=== PATIENT | male | born 1990 | race Caucasian/White ===

== ENCOUNTER 2016-11-16 20:10 | Inpatient (IN) | payer OTHER ==
[~2016-11-16] VITALS: Ht 175.3 cm; Wt 87.0 kg
[~2016-11-16 20:10] MED LIST: CARI350T29 PO
[2016-11-17] VITALS (13 sets, daily range): BP systolic 135–147; BP diastolic 80–93; PULSE 41–89; RESP 18–20; Ht 175.3 cm; Wt 87.0 kg
--- NOTE | 2016-11-17 02:14 | HP ---
Date/Time of Note Date/Time of Note DATE: 11/17/16 TIME: 02:14 Assessment/Plan VTE Prophylaxis VTE Prophylaxis Intervention: ambulation Lines/Catheters IV Catheter Type (from Nrsg): Saline Lock Urinary Cath still in place: No Assessment/Plan Assessment/Plan 1) Acute Kidney Injury - CBC, CMP, UA - CRP, ASO Titer, RITCHIE, Ionized Calcium - Renal Diet - Nephro Consult pending Lab Results HPI/ROS Admit Date/Time Admit Date/Time Nov 16, 2016 at 23:34 Hx of Present Illness This is a 26 year old male, Direct Admit from [facility], who presented to the ER there on 11/16/16, when he was sent there from clinic for a CT, with intermittent, epigastric pain over the previous 6 days. At that time, the pain was cramping, with no aggravating or alleviating factors. He has no history of similar pain, but he does have chronic low back pain and history of lumbar surgery. He thought that he may have hurt himself by lifting up his toddler. Up until several months ago, he used marijuana regularly. He rarely takes ASA or Ibuprofen. He denies street drugs or over-the- counter supplements. His work-up, including a RUQ ultrasound was unremarkable, except that his Creatinine was 3.1. Per ER physician, Dr. Ng, at [facility], his previous Creatinines were always 1 or lower. He has had no fever or chills. Nausea or vomiting. Dysuria, urgency or frequency, and he admits to urinating normally. Last BM was on 11/15. He denies any recent illness, but says he has a mild, occasional, dry cough, "just like everyone else". ROS Constitutional: No chills, No fatigue Eyes: No discharge, No visual change ENT: No congestion, No discharge, No sore throat Respiratory: cough (minimal as per HPI), No shortness of breath, No wheezing Cardiovascular: No chest pain, No palpitations Gastrointestinal: No constipation, No decreased appetite, No diarrhea, No nausea, No vomiting Musculoskeletal: other (LBB, chronic, not too bad, but takes regular narcotics for the pain.), No neck pain Skin: No bruising, No pruritis, No rash Neurologic: No confusion, No dizziness Endocrine: No polydypsia, No polyuria, No weight change Lymphatic: No adenopathy Psychological: anxiety (Patient admits he is anxious. Worried that he will need surgery, and he does not want to stay in the hospital.) Immunologic: No pruritis, No rhinitis PMH/Family/Social Past Medical History Medical History: other (Low Back Pain, Headaches, Seizures, ANxiety, Depression ) Past Surgical History Past Surgical Hx: other (Lumbar Spine Surgery) Family History Significant Family History: no pertinent family hx Social History Drug Use: marijuana (Previous chronic, daily use, but not for "several months") Exam/Review of Systems Vital Signs Vitals Vital Signs Date Time Temp Pulse Resp B/P Pulse Ox O2 Delivery O2 Flow Rate FiO2 11/17/16 00:14 99.0 74 20 147/91 97 Room Air Exam Constitutional: alert, oriented, well developed Psych: anxiety, nl mood/affect Head: atraumatic, normocephalic Eyes: EOMI, nl conjunctiva, nl sclera ENMT: mucosa pink and moist, nl external ears & nose, nl lips & teeth Neck: other (No lymphadenopathy), supple Respiratory: clear to auscultation, normal air movement Cardiovascular: nl pulses, regular rate and rhythm Gastrointestinal: nl liver, spleen, non-tender, other (No CVA Tenderness), soft Musculoskeletal: muscle tone, nl extremities to inspection Extremities: normal pulses, No cyanosis, No edema Neurological: [employer] II-XII intact (Grossly), nl mental status, nl speech, nl strength Skin: nl turgor, No rash or lesions Medications Medications Cyclobenzaprine 10 mg 1, Q 8 hrs prn Hydrocodone APAP 5/325, 1 BID prn Ondansetron 8 mg ODT, 1 Q 8 hours prn JER SAPP MD Nov 17, 2016 02:14
[2016-11-17] MEDS ORDERED: HYDROCODONE/APAP (5/325) TAB PO PRN (02:30)
[2016-11-17] MEDS ORDERED: NACL 0.9% 3 ML SYG IV SCH (02:30)
[2016-11-17] MEDS ORDERED: ACETAMINOPHEN 325 MG TAB PO PRN (02:30)
[2016-11-17 07:09] LABS: ADD SCAN DIFF NO
[2016-11-17 07:14] LABS: BASOPHILS % 0.4 % (0.0-2.0); EOSINOPHILS # 0.2 10^3/ul (0.0-0.5); EOSINOPHILS % 2.3 % (0.0-7.0); HEMATOCRIT 43.7 % (42.0-52.0); HEMOGLOBIN 14.5 g/dl (14.0-18.0); LYMPHOCYTES # 2.2 10^3/ul (0.8-2.9); LYMPHOCYTES % 27.9 % (15.0-51.0); MEAN CORPUSCULAR HEMOGLOBIN 28.4 pg (29.0-33.0); MEAN CORPUSCULAR HGB CONC 33.2 g/dl (32.0-37.0); MEAN CORPUSCULAR VOLUME 85.7 fl (82.0-101.0); MEAN PLATELET VOLUME 11.2 fl (7.4-10.4); MONOCYTE # 0.7 10^3/ul (0.3-0.9); MONOCYTES % 9.4 % (0.0-11.0); NEUTROPHIL # 4.7 10^3/ul (1.6-7.5); NEUTROPHILS % 59.7 % (39.0-77.0); PLATELET COUNT 225 10^3/UL (140-415); RED CELL DISTRIBUTION WIDTH 12.1 % (11.5-14.5); WHITE BLOOD COUNT 7.8 10^3/ul (4.8-10.8)
[2016-11-17 07:28] LABS: INR 1.08; PT RATIO 1.1
[2016-11-17 07:29] LABS: PARTIAL THROMBOPLASTIN TIME 33.1 Sec (25.0-35.0)
[2016-11-17 07:30] LABS: POTASSIUM 4.9 mmol/L (3.5-5.1)
[2016-11-17 07:33] LABS: CREATININE 3.04 mg/dl (0.61-1.24)
[2016-11-17 07:34] LABS: CALCIUM 9.6 mg/dl (8.4-10.2); MAGNESIUM 2.4 mg/dl (1.7-2.5); PHOSPHORUS 5.4 mg/dl (2.5-4.9)
[2016-11-17 07:37] LABS: C-REACTIVE PROTEIN 2.8 mg/dl (0.0-0.9)
[2016-11-17] MEDS: FAMOTIDINE 20 MG TAB PO SCH ×2 (08:09→20:58)
[2016-11-17 13:24] LABS: ADD UMIC YES; URINE BILIRUBIN (Dip) NEGATIVE (NEGATIVE); URINE BLOOD (Dip) TRACE (NEGATIVE); URINE COLOR LT. YELLOW (YELLOW); URINE GLUCOSE (Dip) NEGATIVE (NEGATIVE); URINE KETONES (Dip) NEGATIVE (NEGATIVE); URINE LEUKOCYTE ESTERASE (Dip) NEGATIVE (NEGATIVE); URINE NITRITE (Dip) NEGATIVE (NEGATIVE); URINE TOTAL PROTEIN (Dip) NEGATIVE (NEGATIVE); URINE UROBILINOGEN (Dip) 0.2 E.U./dL (0.1-1.0)
[2016-11-17 13:36] LABS: URINE RBCS 0-2 /HPF (0)
--- NOTE | 2016-11-17 16:17 | PN ---
Date/Time of Note Date/Time of Note DATE: 11/17/16 TIME: 16:13 Assessment/Plan VTE Prophylaxis VTE Prophylaxis Intervention: SCD's Lines/Catheters [facility] (from [facility] Saline Lock Urinary Cath still in place: No Assessment/Plan Chief Complaint/Hosp Course Assessment and plan 1. Acute renal insufficiency, likely secondary to intractable diarrhea Continue aggressive IV fluid, nephrology has been consulted, Follow-up renal panel, renal ultrasound normal Continue monitor patient closely for recommendation management treatment as per clinical course Problems: Subjective 24 Hr Interval Summary Free Text/Dictation Patient denies of any chest pain or shortness of breath Tolerating oral intake Exam/Review of Systems Vital Signs Vitals Vital Signs Date Time Temp Pulse Resp B/P Pulse Ox O2 Delivery O2 Flow Rate FiO2 11/17/16 16:05 54 11/17/16 11:41 98.1 18 136/84 97 11/17/16 04:00 Room Air Intake and Output 11/16/16 11/16/16 11/17/16 15:00 23:00 07:00 Intake Total 1100 ml Output Total 950 ml Balance 150 ml Exam General: The patient is well-developed, Not in acute distress. HEENT: Atraumatic, normocephalic. The pupils are equal and round . Neck: Supple with full range of motion. Chest: Normal expansion of the thorax during inspiration Lungs: Clear to auscultation bilaterally Heart: Normal S1-S2, Regular rhythm and rate. Abdomen: Soft , nontender, nondistended , bowel sounds are present. Extremities: Normal to inspection, no edema no cyanosis Neurologic: Normal mental status,The patient is awake, alert and oriented . Results Result Diagram: 11/17/16 0632 11/17/16 0632 Results 24 hrs Laboratory Tests Test 11/17/16 06:32 11/17/16 11:54 Activated Partial Thromboplast Time 33.1 Albumin 4.0 Anion Gap 19 H Basophils # 0.0 Basophils % 0.4 Blood Urea Nitrogen 19 C-Reactive Protein 2.8 H Calcium Level 9.6 Carbon Dioxide Level 27 Chloride Level 104 Creatinine 3.04 H Eosinophils # 0.2 Eosinophils % 2.3 Erythrocyte Sedimentation Rate 12 Glucose Level 89 Hematocrit 43.7 Hemoglobin 14.5 INR International Normalized Ratio 1.08 Ionized Calcium (Measured) 1.2 Lymphocytes # 2.2 Lymphocytes % 27.9 Magnesium Level 2.4 Mean Corpuscular Hemoglobin 28.4 L Mean Corpuscular Hemoglobin Concent 33.2 Mean Corpuscular Volume 85.7 Mean Platelet Volume 11.2 H Monocytes # 0.7 Monocytes % 9.4 Neutrophils # 4.7 Neutrophils % 59.7 Nucleated Red Blood Cells # 0.0 Nucleated Red Blood Cells % 0.0 Phosphorus Level 5.4 H Platelet Count 225 Potassium Level 4.9 Prothrombin Time 14.0 Prothrombin Time Ratio 1.1 Red Blood Count 5.10 Red Cell Distribution Width 12.1 Sodium Level 145 H White Blood Count 7.8 Urine Bilirubin NEGATIVE Urine Clarity CLEAR Urine Color LT. YELLOW Urine Glucose NEGATIVE Urine Hemoglobin TRACE Urine Ketones NEGATIVE Urine Leukocyte Esterase NEGATIVE Urine Microscopic RBC 0-2 Urine Microscopic WBC NONE SEEN Urine Nitrite NEGATIVE Urine Random Creatinine 21.59 Urine Random Sodium 45 Urine Specific [place] <=1.005 L Urine Total Protein NEGATIVE Urine Urobilinogen 0.2 E.U./dL Urine pH 5.5 Medications Medications Current Medications Acetaminophen (Tylenol Tab) 650 mg Q6H PRN PO PAIN LEVEL 1-3 OR FEVER; Start at 02:30 Acetaminophen/ Hydrocodone Bitart ([place] (5/325)) 2 tab Q6H PRN PO SEVERE PAIN LEVEL 7-10; Start 11/17/16 at 02:30 Famotidine (Pepcid) 20 mg Q12 PO Last administered on 11/17/16t 08:09; Admin Dose 20 MG; Start 11/17/16 at 09:00 Influenza Virus Vaccine (Fluzone) 0.5 ml ONCE ONCE IM* ; Start 11/18/16 at 09:00 ; Stop 11/18/16 at 09:01 GURDEEP FERNANDEZ MD Nov 17, 2016 16:17
[2016-11-17] MEDS: CALCIUM CARBONATE 500 MG CHEW TAB PO SCH ×2 (17:58→18:00)
[2016-11-17] MEDS: SOD CHLORIDE 0.45% 1,000 ML IV SCH (17:59)
--- NOTE | 2016-11-17 18:38 | CONS ---
DATE OF ADMISSION: 11/16/2016 DATE OF CONSULTATION: Dear Dr. Erin Hood and Dr. Daley: Thank you for asking me to participate in the care of Mr. Em. HISTORY OF PRESENT ILLNESS: This is a 26-year-old male who has been admitted to the hospital as a transfer from [facility]. The patient had been complaining of abdominal pain and apparently visited the urgent care where his creatinine was elevated at 3.1. He was referred to the emergency room where additional workup inclu ded a CT scan and a repeat creatinine was 3.1. He has been since transferred here for continued car e. The patient admits to having had a recent upper respiratory tract infection. A urinalysis does show 2 to 5 RBCs. Urine bacteria moderate, and small blood is present. The patient has had normal rest of the chemistry and enzymes are normal. PAST MEDICAL HISTORY: The patient denies being exposed to any nephrotoxic agents. He has not had a ny episode of urinary retention, fatou hematuria, facial swelling. MEDICATIONS: He has been takin. Vicodin. 2. Reglan. 3. Flexeril 4. Ibuprofen. 5. Prevacid. 6. Deltasone. REVIEW OF SYSTEMS: Rest of the system review is negative for any head, ears, nose, throat problems. The patient has not had any joint pain, skin rash, hearing loss, although as mentioned earlier, he has been having symptoms of upper respiratory tract infection. The patient has already had a CT scan, as mentioned is negative. He has also had a lumbar spine x-r ay which is negative. LABORATORY DATA: Presently, white count is 7.8, hematocrit is 44 and phosphorus is 5.4. CRP is 2.8 , sodium is somewhat high at 145, BUN is 19, creatinine 3.04. A repeat urinalysis has specific grav ity 1.005, and urine sodium was 45. INR is normal. Patient has already been placed on Pepcid, calc ium, Tums and IV fluids at 80 mL per hour. He has received influenza ____ and hydrocodone. The rest of the system review is negative for any head, ear, nose, throat problem. The patient ruchi es any acute gout, joint pain, any skin rash, seizures, syncope, or other metabolic problem. FAMILY HISTORY: Not obtainable. He is adopted. PERSONAL HISTORY: He stated he is and he has 2 children. PHYSICAL EXAMINATION: GENERAL: The patient to be pleasant male who appears to be in no acute distress. VITAL SIGNS: His blood pressure is 140/90, heart rate is low at 54, has been as low as 41 and prese ntly at 54, temperature 97.5, respiration is 20. HEAD, EAR, NOSE AND THROAT: Unremarkable. EYES: Pale conjunctivae. Sclerae are anicteric. NOSE: Normal mucosa. He has a pierced right nostril. THROAT: Tongue is pale. No pharyngeal congestion. NECK: Supple. No JVD, lymph or thyroid present. CHEST: Symmetrical. LUNGS: Clear. HEART: Regular rhythm, S1 unremarkable. ABDOMEN: Flat, soft, no masses. GENITALIA: Not examined. EXTREMITIES: No cyanosis, clubbing, edema. SKIN: Unremarkable. IMPRESSION: Acute kidney injury, history of ? etiology. See discussion below. This patient has been in good health at least until recently when he was found to have elevated crea tinine. There is minimal microscopic hematuria which may or may not be of any significance. The possible consideration may well be a glomerular disease such as acute post streptococcal glomeru lonephritis, especially in the light of his recent upper respiratory tract infection. I would obtai n an ASO titer to corroborate that. I would continue vigorous hydration in hope that we can improve the renal function and I will hope that the renal function will turn around. I will continue to fo llow the patient's clinical course closely along with you. Allow me to thank you once again. Dictated By: JEANCARLOS HUGGINS/RICK Conf#: [id number] DID#: [id number]
[2016-11-17 20:18] LABS: CREATINE KINASE 46 IU/L (23-200)
[2016-11-17 20:30] LABS: CK-MB < 0.22 ng/ml (0.0-2.4)
[2016-11-17 20:36] LABS: TROPONIN-I < 0.012 ng/ml (0.00-0.12)
[2016-11-18] VITALS (9 sets, daily range): BP systolic 124–170; BP diastolic 68–94; PULSE 40–74; RESP 18
[2016-11-18] MEDS: SOD CHLORIDE 0.45% 1,000 ML IV SCH ×4 (00:25→13:09)
[2016-11-18 05:58] LABS: ADD SCAN DIFF NO
[2016-11-18 06:06] LABS: BASOPHILS % 0.5 % (0.0-2.0); EOSINOPHILS # 0.3 10^3/ul (0.0-0.5); EOSINOPHILS % 3.2 % (0.0-7.0); HEMATOCRIT 41.7 % (42.0-52.0); LYMPHOCYTES % 25.1 % (15.0-51.0); MEAN CORPUSCULAR HEMOGLOBIN 28.9 pg (29.0-33.0); MEAN CORPUSCULAR HGB CONC 33.6 g/dl (32.0-37.0); MEAN PLATELET VOLUME 10.9 fl (7.4-10.4); MONOCYTE # 0.7 10^3/ul (0.3-0.9); MONOCYTES % 9.3 % (0.0-11.0); NEUTROPHIL # 4.8 10^3/ul (1.6-7.5); NEUTROPHILS % 61.6 % (39.0-77.0); PLATELET COUNT 201 10^3/UL (140-415); RED BLOOD COUNT 4.85 10^6/ul (4.70-6.10); RED CELL DISTRIBUTION WIDTH 12.3 % (11.5-14.5); WHITE BLOOD COUNT 7.8 10^3/ul (4.8-10.8)
[2016-11-18 06:36] LABS: ALBUMIN 3.9 g/dl (3.3-4.9)
[2016-11-18 06:37] LABS: POTASSIUM 4.4 mmol/L (3.5-5.1)
[2016-11-18 06:39] LABS: ALBUMIN/GLOBULIN RATIO 1.39; BILIRUBIN,INDIRECT 0.2 mg/dl (0-1.1); BILIRUBIN,TOTAL 0.2 mg/dl (0.2-1.3); CREATININE 2.75 mg/dl (0.61-1.24); TOTAL PROTEIN 6.7 g/dl (6.1-8.1)
[2016-11-18 06:40] LABS: CALCIUM 9.4 mg/dl (8.4-10.2)
[2016-11-18] MEDS: FAMOTIDINE 20 MG TAB PO SCH ×2 (08:36→20:27)
[2016-11-18] MEDS: CALCIUM CARBONATE 500 MG CHEW TAB PO SCH ×3 (08:37→18:49)
[2016-11-18] MEDS ORDERED: INFLUENZA VIRUS VACCINE 0.5 ML (DISPENSING) IM* ONE (09:00)
--- NOTE | 2016-11-18 13:09 | PN ---
Date/Time of Note Date/Time of Note DATE: 11/18/16 TIME: 13:05 Assessment/Plan VTE Prophylaxis VTE Prophylaxis Intervention: SCD's Lines/Catheters IV Catheter Type (from [facility]): Saline Lock Urinary Cath still in place: No Assessment/Plan Chief Complaint/Hosp Course Assessment and plan 1. Acute renal insufficiency, likely secondary to intractable diarrhea versus streptococcal glomerulonephritis, follow up ASO Continue aggressive IV fluid, nephrology has been consulted, Follow-up renal panel, renal ultrasound normal Nephrology has been consulted, renal panel moderately improving status post IV fluid Continue monitor patient closely for recommendation management treatment as per clinical course Problems: Subjective 24 Hr Interval Summary Free Text/Dictation Patient denies any chest pain or shortness of breath No evidence of dysuria or hematuria No complaint of having abdominal pain no CVA tenderness Exam/Review of Systems Vital Signs Vitals Vital Signs Date Time Temp Pulse Resp B/P Pulse Ox O2 Delivery O2 Flow Rate FiO2 11/18/16 11:21 97.9 51 17 131/77 97 11/18/16 04:00 Room Air Intake and Output 11/17/16 11/17/16 11/18/16 14:59 22:59 06:59 Intake Total 3110 ml 750 ml 2500 ml Output Total 1725 ml 200 ml 4050 ml Balance 1385 ml 550 ml -1550 ml Exam General: The patient is well-developed, Not in acute distress. HEENT: Atraumatic, normocephalic. The pupils are equal and round . Neck: Supple with full range of motion. Chest: Normal expansion of the thorax during inspiration Lungs: Clear to auscultation bilaterally Heart: Normal S1-S2, Regular rhythm and rate. Abdomen: Soft , nontender, nondistended , bowel sounds are present. Extremities: Normal to inspection, no edema no cyanosis Neurologic: Normal mental status,The patient is awake, alert and oriented . Results Result Diagram: 11/18/16 0535 11/18/16 0535 Results 24 hrs Laboratory Tests Test 11/17/16 19:43 11/18/16 05:35 Creatine Kinase 46 Creatine Kinase Index 0.5 Creatinine Kinase MB (Mass) < 0.22 Troponin I < 0.012 Alanine Aminotransferase (ALT/SGPT) 27 Albumin 3.9 Albumin/Globulin Ratio 1.39 Alkaline Phosphatase 64 Anion Gap 17 H Aspartate Amino Transf (AST/SGOT) 17 Basophils # 0.0 Basophils % 0.5 Blood Urea Nitrogen 19 Calcium Level 9.4 Carbon Dioxide Level 28 Chloride Level 104 Creatinine 2.75 H Direct Bilirubin 0.00 Eosinophils # 0.3 Eosinophils % 3.2 Globulin 2.80 Glucose Level 100 Hematocrit 41.7 L Hemoglobin 14.0 Indirect Bilirubin 0.2 Lymphocytes # 2.0 Lymphocytes % 25.1 Magnesium Level 2.1 Mean Corpuscular Hemoglobin 28.9 L Mean Corpuscular Hemoglobin Concent 33.6 Mean Corpuscular Volume 86.0 Mean Platelet Volume 10.9 H Monocytes # 0.7 Monocytes % 9.3 Neutrophils # 4.8 Neutrophils % 61.6 Nucleated Red Blood Cells # 0.0 Nucleated Red Blood Cells % 0.0 Platelet Count 201 Potassium Level 4.4 Red Blood Count 4.85 Red Cell Distribution Width 12.3 Sodium Level 145 H Total Bilirubin 0.2 Total Protein 6.7 White Blood Count 7.8 Medications Medications Current Medications Acetaminophen (Tylenol Tab) 650 mg Q6H PRN PO PAIN LEVEL 1-3 OR FEVER; Start at 02:30 Acetaminophen/ Hydrocodone Bitart ([place] (5/325)) 2 tab Q6H PRN PO SEVERE PAIN LEVEL 7-10 Last administered on 11/18/16 08:37; Admin Dose 2 TAB; Start 11/17/16 at 02:30 Famotidine 20 mg 20 mg Q12 PO Last administered on 11/18/16 08:36; Admin Dose 20 MG; Start 11/17/16 at 09:00 Sodium Chloride (1/2 NS) 1,000 ml @ 120 mls/hr Q8H20M IV Last administered on 11/18/16 05:26; Admin Dose 120 MLS/HR; Start 11/17/16 at 16:30 GURDEEP FERNANDEZ MD Nov 18, 2016 13:09
[2016-11-18 14:44] LABS: ANA SCREEN NEGATIVE (NEGATIVE)
--- NOTE | 2016-11-18 19:28 | CONS ---
Date/Time of Note Date/Time of Note DATE: 11/18/16 TIME: 19:26 Assessment/Plan Assessment/Plan Additional Assessment/Plan 26 yo Male with 1) ROSALIND, Non Oliguric, Stable and improved, ? Etiology, ASO reviewed, Unlikely PIGN, Also bland urine sediment Will cont to monitor along with you. Cont current Rx and plan. Cont Phos binder , Will repeat phos level. Consultation Date/Type/Reason Admit Date/Time Nov 16, 2016 at 23:34 Initial Consult Date Type of Consultation: Nephrology Reason for Consultation ROSALIND Referring Provider: GURDEEP FERNANDEZ MD Exam/Review of Systems Vital Signs Vitals Vital Signs Date Time Temp Pulse Resp B/P Pulse Ox O2 Delivery O2 Flow Rate FiO2 11/18/16 11:21 97.9 51 17 131/77 97 11/18/16 04:00 Room Air Intake and Output 11/17/16 11/17/16 11/18/16 15:00 23:00 07:00 Intake Total 3110 ml 750 ml 2500 ml Output Total 1725 ml 200 ml 4050 ml Balance 1385 ml 550 ml -1550 ml Results Result Diagram: 11/18/16 0535 11/18/16 0535 Results 24 hrs Laboratory Tests Test 11/17/16 19:43 11/18/16 05:35 Creatine Kinase 46 Creatine Kinase Index 0.5 Creatinine Kinase MB (Mass) < 0.22 Troponin I < 0.012 Alanine Aminotransferase (ALT/SGPT) 27 Albumin 3.9 Albumin/Globulin Ratio 1.39 Alkaline Phosphatase 64 Anion Gap 17 H Aspartate Amino Transf (AST/SGOT) 17 Basophils # 0.0 Basophils % 0.5 Blood Urea Nitrogen 19 Calcium Level 9.4 Carbon Dioxide Level 28 Chloride Level 104 Creatinine 2.75 H Direct Bilirubin 0.00 Eosinophils # 0.3 Eosinophils % 3.2 Globulin 2.80 Glucose Level 100 Hematocrit 41.7 L Hemoglobin 14.0 Indirect Bilirubin 0.2 Lymphocytes # 2.0 Lymphocytes % 25.1 Magnesium Level 2.1 Mean Corpuscular Hemoglobin 28.9 L Mean Corpuscular Hemoglobin Concent 33.6 Mean Corpuscular Volume 86.0 Mean Platelet Volume 10.9 H Monocytes # 0.7 Monocytes % 9.3 Neutrophils # 4.8 Neutrophils % 61.6 Nucleated Red Blood Cells # 0.0 Nucleated Red Blood Cells % 0.0 Platelet Count 201 Potassium Level 4.4 Red Blood Count 4.85 Red Cell Distribution Width 12.3 Sodium Level 145 H Total Bilirubin 0.2 Total Protein 6.7 White Blood Count 7.8 Medications Medications Current Medications Acetaminophen (Tylenol Tab) 650 mg Q6H PRN PO PAIN LEVEL 1-3 OR FEVER; Start at 02:30 Acetaminophen/ Hydrocodone Bitart ([place] (5/325)) 2 tab Q6H PRN PO SEVERE PAIN LEVEL 7-10 Last administered on 11/18/16 08:37; Admin Dose 2 TAB; Start 11/17/16 at 02:30 Famotidine 20 mg 20 mg Q12 PO Last administered on 11/18/16 08:36; Admin Dose 20 MG; Start 11/17/16 at 09:00 Sodium Chloride (1/2 NS) 1,000 ml @ 120 mls/hr Q8H20M IV Last administered on 11/18/16 13:09; Admin Dose 120 MLS/HR; Start 11/17/16 at 16:30 CODI JOHANSEN MD Nov 18, 2016 19:28
[2016-11-19] MEDS: SOD CHLORIDE 0.45% 1,000 ML IV SCH ×3 (02:00→12:38)
[2016-11-19 05:48] LABS: ADD SCAN DIFF NO
[2016-11-19 06:00] LABS: BASOPHIL # 0.1 10^3/ul (0.0-0.1); BASOPHILS % 0.7 % (0.0-2.0); EOSINOPHILS # 0.3 10^3/ul (0.0-0.5); EOSINOPHILS % 3.7 % (0.0-7.0); HEMOGLOBIN 13.2 g/dl (14.0-18.0); MEAN CORPUSCULAR HEMOGLOBIN 28.8 pg (29.0-33.0); MEAN CORPUSCULAR HGB CONC 33.8 g/dl (32.0-37.0); MEAN PLATELET VOLUME 10.9 fl (7.4-10.4); MONOCYTE # 0.6 10^3/ul (0.3-0.9); MONOCYTES % 7.9 % (0.0-11.0); NEUTROPHIL # 4.6 10^3/ul (1.6-7.5); NEUTROPHILS % 61.6 % (39.0-77.0); PLATELET COUNT 198 10^3/UL (140-415); POTASSIUM 4.4 mmol/L (3.5-5.1); RED BLOOD COUNT 4.59 10^6/ul (4.70-6.10); RED CELL DISTRIBUTION WIDTH 12.3 % (11.5-14.5); WHITE BLOOD COUNT 7.5 10^3/ul (4.8-10.8)
[2016-11-19 06:03] LABS: CREATININE 1.99 mg/dl (0.61-1.24)
[2016-11-19 06:04] LABS: CALCIUM 9.4 mg/dl (8.4-10.2); MAGNESIUM 1.8 mg/dl (1.7-2.5)
[2016-11-19 08:29] VITALS: BP 115/55; RESP 18
[2016-11-19] MEDS: FAMOTIDINE 20 MG TAB PO SCH (08:33)
[2016-11-19] MEDS: CALCIUM CARBONATE 500 MG CHEW TAB PO SCH ×2 (08:33→12:37)
--- NOTE | 2016-11-19 09:43 | RADRPT ---
PROCEDURE: US Renal CLINICAL INDICATION: Elevated creatinine. TECHNIQUE: Multiple sonographic images of the kidneys and bladder were obtained. Evaluation of th e kidneys and bladder was performed as well with thompson scale and color and Doppler evaluation using a curved array transducer. The images were reviewed on a high-resolution PACS workstation. COMPARISON: No prior studies are available for comparison. FINDINGS: The right kidney measures 11.0 cm. The left kidney measures 11.6 cm. There is normal echogenicity within the parenchyma of the kidneys bilaterally. There is no mass, calculus, or obstructive uropathy. No perinephric fluid collection is seen. Evaluation of the urinary bladder is unremarkable. IMPRESSION: 1. Unremarkable renal ultrasound. RPTAT: AACC Physician Cece Date Time Electronically viewed and signed by Physician Cece on 11/19/2016 09:37 /
--- NOTE | 2016-11-19 10:28 | CONS ---
Date/Time of Note Date/Time of Note DATE: 11/19/16 TIME: 10:27 Assessment/Plan Assessment/Plan Additional Assessment/Plan 26 yo Male with 1) ROSALIND, Non Oliguric, Stable and improved, ? Etiology, ASO reviewed, Unlikely PIGN, Also bland urine sediment Consultation Date/Type/Reason Admit Date/Time Nov 16, 2016 at 23:34 Type of Consultation: Nephrology Referring Provider: GURDEEP FERNANDEZ MD Exam/Review of Systems Vital Signs Vitals Vital Signs Date Time Temp Pulse Resp B/P Pulse Ox O2 Delivery O2 Flow Rate FiO2 11/19/16 08:29 98.4 54 18 115/55 96 11/18/16 04:00 Room Air Intake and Output 11/18/16 11/18/16 11/19/16 15:00 23:00 07:00 Intake Total 500 ml 1200 ml 1560 ml Output Total 800 ml 1400 ml 5250 ml Balance -300 ml -200 ml -3690 ml Results Result Diagram: 11/19/16 0525 11/19/16 0525 Results 24 hrs Laboratory Tests Test 11/19/16 05:25 Anion Gap 15 Basophils # 0.1 Basophils % 0.7 Blood Urea Nitrogen 15 Calcium Level 9.4 Carbon Dioxide Level 28 Chloride Level 104 Creatine Kinase 25 Creatinine 1.99 H Eosinophils # 0.3 Eosinophils % 3.7 Glucose Level 94 Hematocrit 39.0 L Hemoglobin 13.2 L Lymphocytes # 2.0 Lymphocytes % 26.0 Magnesium Level 1.8 Mean Corpuscular Hemoglobin 28.8 L Mean Corpuscular Hemoglobin Concent 33.8 Mean Corpuscular Volume 85.0 Mean Platelet Volume 10.9 H Monocytes # 0.6 Monocytes % 7.9 Neutrophils # 4.6 Neutrophils % 61.6 Nucleated Red Blood Cells # 0.0 Nucleated Red Blood Cells % 0.0 Phosphorus Level 5.0 H Platelet Count 198 Potassium Level 4.4 Red Blood Count 4.59 L Red Cell Distribution Width 12.3 Sodium Level 143 White Blood Count 7.5 Medications Medications Current Medications Acetaminophen (Tylenol Tab) 650 mg Q6H PRN PO PAIN LEVEL 1-3 OR FEVER; Start at 02:30 Acetaminophen/ Hydrocodone Bitart ([place] (5/325)) 2 tab Q6H PRN PO SEVERE PAIN LEVEL 7-10 Last administered on 11/18/16t 08:37; Admin Dose 2 TAB; Start 11/17/16 at 02:30 Famotidine 20 mg 20 mg Q12 PO Last administered on 11/19/16 08:33; Admin Dose 20 MG; Start 11/17/16 at 09:00 Sodium Chloride (1/2 NS) 1,000 ml @ 120 mls/hr Q8H20M IV Last administered on 11/19/16 02:00; Admin Dose 120 MLS/HR; Start 11/17/16 at 16:30 CODI JOHANSEN MD Nov 19, 2016 10:28
--- NOTE | 2016-11-19 16:12 | DS ---
Date/Time of Note Date/Time of Note DATE: 11/19/16 TIME: 16:06 Discharge Summary Admission/Discharge Info Admit Date/Time Nov 16, 2016 at 23:34 Discharge Date/Time Final Diagnosis 1. Acute renal failure, likely pre-renal, improving, follow up with nephrology Patient Condition: Stable Hx of Present Illness This is a 26 year old male, Direct Admit from [facility], who presented to the ER there on 11/16/16, when he was sent there from clinic for a CT, with intermittent, epigastric pain over the previous 6 days. At that time, the pain was cramping, with no aggravating or alleviating factors. He has no history of similar pain, but he does have chronic low back pain and history of lumbar surgery. He thought that he may have hurt himself by lifting up his toddler. Up until several months ago, he used marijuana regularly. He rarely takes ASA or Ibuprofen. He denies street drugs or over-the- counter supplements. His work-up, including a RUQ ultrasound was unremarkable, except that his Creatinine was 3.1. Per ER physician, Dr. Ng, at [facility], his previous Creatinines were always 1 or lower. He has had no fever or chills. Nausea or vomiting. Dysuria, urgency or frequency, and he admits to urinating normally. Last BM was on 11/15. He denies any recent illness, but says he has a mild, occasional, dry cough, "just like everyone else". Hospital Course Work up for acute renal failure, renal ultrasound is unremarkable, negative RITCHIE , ASO 34. The renal failure is gradually improving. BUN/Cr are improved from 19/ 3.04 on admission down to 15/1.99 on 11/19/2016. The acute renal failure is considered pre-renal. He will follow up with case management coordinator next week. Home Meds Discontinued Reported Medications Carisoprodol* (Carisoprodol*) 350 Mg Tablet, 350 MG PO Q8 Y for MUSCLE SPASMS, TAB 05/30/15 Follow-up Plan Dr. Peterson next week Pending Labs Laboratory Tests Test 11/19/16 05:25 Anion Gap 15 (8-16) Basophils # 0.110^3/ul (0.0-0.1) Basophils % 0.7% (0.0-2.0) Blood Urea Nitrogen 15mg/dl (7-20) Calcium Level 9.4mg/dl (8.4-10.2) Carbon Dioxide Level 28mmol/L (21-31) Chloride Level 104mmol/L (97-110) Creatine Kinase 25IU/L (23-200) Creatinine 1.99mg/dl (0.61-1.24) Eosinophils # 0.310^3/ul (0.0-0.5) Eosinophils % 3.7% (0.0-7.0) Glucose Level 94mg/dl (70-220) Hematocrit 39.0% (42.0-52.0) Hemoglobin 13.2g/dl (14.0-18.0) Lymphocytes # 2.010^3/ul (0.8-2.9) Lymphocytes % 26.0% (15.0-51.0) Magnesium Level 1.8mg/dl (1.7-2.5) Mean Corpuscular Hemoglobin 28.8pg (29.0-33.0) Mean Corpuscular Hemoglobin Concent 33.8g/dl (32.0-37.0) Mean Corpuscular Volume 85.0fl (82.0-101.0) Mean Platelet Volume 10.9fl (7.4-10.4) Monocytes # 0.610^3/ul (0.3-0.9) Monocytes % 7.9% (0.0-11.0) Neutrophils # 4.610^3/ul (1.6-7.5) Neutrophils % 61.6% (39.0-77.0) Nucleated Red Blood Cells # 0.010^3/ul (0.0-0.0) Nucleated Red Blood Cells % 0.0/100WBC (0.0-0.0) Phosphorus Level 5.0mg/dl (2.5-4.9) Platelet Count 96123^3/UL (140-415) Potassium Level 4.4mmol/L (3.5-5.1) Red Blood Count 4.5910^6/ul (4.70-6.10) Red Cell Distribution Width 12.3% (11.5-14.5) Sodium Level 143mmol/L (135-144) White Blood Count 7.510^3/ul (4.8-10.8) ALEXY LAGUNAS MD Nov 19, 2016 16:12
== END 2016-11-19 17:21 | disposition home or self-care (01) | DRG 684 ==
LOC: MS4 23:34 → PP2 11-18 13:00
PROVIDERS: ADMIT Family Medicine; ATTEND Family Medicine
DX: N17.9 Acute kidney failure, unspecified (principal); F12.90 Cannabis use, unspecified, uncomplicated; R19.7 Diarrhea, unspecified; G89.29 Other chronic pain; M54.9 Dorsalgia, unspecified; Z88.6 Allergy status to analgesic agent
CPT/HCPCS: 76775; 80048; 80053; 80069; 81001; 81003; 82330; 82550; 82553; 83735; 83935; 84100; 84155; 84300; 84484; 85025; 85610; 85651; 85730; 86038; 86060; 86140; 86162; 87070; 87086; 90686

== ENCOUNTER 2018-06-10 19:04 | Emergency (ER) | END 2018-06-10 21:16 | disposition home or self-care (01) ==